=== PATIENT | male | born 1995 | race Hispanic/Latino ===

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

== ENCOUNTER 2018-05-21 01:16 | Emergency (ER) | payer OTHER ==
[~2018-05-21] VITALS: Ht 172.7 cm; Wt 114.5 kg
[~2018-05-21 01:16] MED LIST changes: +TRAMADOL HYDROC50 MG PO
[2018-05-21] MEDS ORDERED: KEFLEX500 MG PO (01:57)
[2018-05-21 03:15] VITALS: BP 138/71
== END 2018-05-21 03:15 | disposition home or self-care (01) ==
LOC: ED 01:16
DX: L02.32 Furuncle of buttock (principal)